=== PATIENT | female | born 1970 | race Caucasian/White ===

== ENCOUNTER 2016-11-15 05:45 | Observation (INO) | payer OTHER ==
[~2016-11-15] VITALS: Ht 149.9 cm; Wt 75.8 kg
[~2016-11-15 05:45] MED LIST: ALBUAER3 INH; DICL1GEL TOPICAL; GABA300C5 PO; LINA290C PO; METH2.5T PO; MULTTAB67 PO; SERT-129 PO; TOPI200T7 PO
[2016-11-15] MEDS ORDERED: SODIUM CHLORIDE 0.9% INJ 100 ML ONE (06:14)
[2016-11-15] MEDS ORDERED: CLINDAMYCIN 600 MG/NS 100 ML IV SCH ×2 (06:15)
[2016-11-15] MEDS ORDERED: GENTAMICIN/SOD CHL 80 MG/100 ML IV SCH (06:15)
[2016-11-15] MEDS ORDERED: METOPROLOL TARTRATE 25 MG TAB PO PRN (06:15)
[2016-11-15] MEDS ORDERED: INSULIN HUMAN REGULAR 1,000 UNITS/10 ML VIAL SQ PRN (06:15)
[2016-11-15] MEDS ORDERED: SODIUM CHLORID 0.9% 500 ML IV SCH (06:15)
[2016-11-15] MEDS ORDERED: LACTATED RINGER'S 1000 ML IV SCH (06:15)
[2016-11-15 06:33] VITALS: BP 96/60; PULSE 52; RESP 16; TEMP 97.5; O2SAT 99
[2016-11-15 07:00] LABS: AUTOMATED NEUTROPHIL # 2.2 TH/MM3 (1.8-7.7); BASOPHIL # 0.1 TH/MM3 (0-0.2); BASOPHIL % 1.4 % (0.0-2.0); EOSINOPHIL # 0.4 TH/MM3 (0-0.4); EOSINOPHIL % 8.5 % (0.0-4.0); HEMATOCRIT 39.4 % (35.0-46.0); HEMO FLAGS DIFF FINAL; LYMPH % 31.3 % (9.0-44.0); LYMPHOCYTE # 1.4 TH/MM3 (1.0-4.8); MEAN CELL VOLUME 83.3 FL (80.0-100.0); MEAN CORPUSCULAR HEMOGLOBIN 27.9 PG (27.0-34.0); MEAN CORPUSCULAR HGB CONC 33.4 % (32.0-36.0); MONO % 7.4 % (0.0-8.0); NEUT % 51.4 % (16.0-70.0); PLATELET COUNT 199 TH/MM3 (150-450); RED BLOOD COUNT 4.72 MIL/MM3 (4.00-5.30); RED CELL DISTRIBUTION WIDTH 14.8 % (11.6-17.2); WHITE BLOOD COUNT 4.4 TH/MM3 (4.0-11.0)
[2016-11-15] MEDS ORDERED: METHYLENE BLUE 10 MG/ML VIAL ONE (07:02)
[2016-11-15] MEDS ORDERED: VASOPRESSIN INJ 20 UNITS/ML VIAL ONE (07:02)
[2016-11-15 07:11] LABS: BACTERIA, URINE FEW /hpf; BLOOD, URINE NEG (NEG); COMMENT (UR) CULTURE INDICATED; CULTURE IF INDICATED CULTURE INDICATED; GLUCOSE,URINE NEG (NEG); HYALINE CAST, URINE 3 /lpf (RARE); KETONE, URINE NEG (NEG); MUCUS URINE FEW /lpf (OCC); NITRITE,URINE NEG (NEG); PH, URINE 5.5 (5.0-8.5); SQUAMOUS EPITHELIAL CELL URINE 18 /hpf (0-5); TRANSITIONAL EPI CELLS, URINE <1 /hpf; URINE COLOR YELLOW (YELLW/STRAW)
[2016-11-15 07:44] LABS: ANION GAP 7 MEQ/L (5-15); AST (GOT) 10 U/L (15-37); BICARBONATE 25.5 MEQ/L (21.0-32.0); BLOOD UREA NITROGEN 13 MG/DL (7-18); CHLORIDE 110 MEQ/L (98-107); GLOMERULAR FILTRATION RATE 72 ML/MIN (>89); POTASSIUM 3.6 MEQ/L (3.5-5.1); SODIUM (NA) 142 MEQ/L (136-145)
[2016-11-15 07:48] LABS: ALKALINE PHOSPHATASE 111 U/L (45-117); ALT (GPT) 19 U/L (10-53); TOTAL BILIRUBIN ADULT 0.3 MG/DL (0.2-1.0)
[2016-11-15] MEDS ORDERED: DEXAMETHASONE SOD PHOS 4 MG/ML VIAL ONE (08:05)
[2016-11-15] MEDS ORDERED: MIDAZOLAM HCL 2 MG/2 ML VIAL ONE (08:05)
[2016-11-15] MEDS ORDERED: FAMOTIDINE 20 MG/2 ML VIAL ONE (08:05)
[2016-11-15] MEDS ORDERED: DO NOT ADM ANY ANTICOAGULANT DRUGS XX PRN (09:52)
[2016-11-15] MEDS ORDERED: fentaNYL CITRATE 250 MCG/5 ML AMP ONE (09:55)
[2016-11-15] MEDS ORDERED: *morphine SULFATE 8 MG/ML PERIprocedure ONLY ONE (10:12)
[2016-11-15] MEDS ORDERED: ARTIFICIAL TEARS OPTH SOLN 15 ML BTL EACH EYE PRN (10:15)
[2016-11-15] MEDS ORDERED: ePHEDrine/NS 25 MG/5 ML SYR ONE (10:25)
[2016-11-15 10:56] LABS: AUTOMATED NEUTROPHIL # 7.1 TH/MM3 (1.8-7.7); BASOPHIL # 0.1 TH/MM3 (0-0.2); BASOPHIL % 0.8 % (0.0-2.0); EOSINOPHIL # 0.2 TH/MM3 (0-0.4); EOSINOPHIL % 1.9 % (0.0-4.0); HEMATOCRIT 38.6 % (35.0-46.0); HEMO FLAGS DIFF FINAL; LYMPH % 16.3 % (9.0-44.0); LYMPHOCYTE # 1.5 TH/MM3 (1.0-4.8); MEAN CELL VOLUME 84.5 FL (80.0-100.0); MEAN CORPUSCULAR HEMOGLOBIN 27.2 PG (27.0-34.0); MEAN CORPUSCULAR HGB CONC 32.2 % (32.0-36.0); MONO % 1.9 % (0.0-8.0); NEUT % 79.1 % (16.0-70.0); PLATELET COUNT 160 TH/MM3 (150-450); RED BLOOD COUNT 4.57 MIL/MM3 (4.00-5.30); RED CELL DISTRIBUTION WIDTH 14.6 % (11.6-17.2); WHITE BLOOD COUNT 8.9 TH/MM3 (4.0-11.0)
[2016-11-15] MEDS: KETOROLAC TROMETHAMINE 30 MG/ML (IVP) VIAL IV PUSH SCH ×2 (10:58→18:43)
[2016-11-15] MEDS ORDERED: MEPERIDINE HCL 25 MG/ML VIAL IVP PRN (11:00)
[2016-11-15] MEDS ORDERED: ONDANSETRON HCL 4 MG/2 ML VIAL IV PUSH PRN (11:00)
[2016-11-15] MEDS ORDERED: MEPERIDINE HCL 50 MG TAB PO PRN (11:00)
[2016-11-15 11:10] LABS: BICARBONATE 25.6 MEQ/L (21.0-32.0); POTASSIUM 3.6 MEQ/L (3.5-5.1)
[2016-11-15] MEDS ORDERED: ACETAMINOPHEN 1000 MG/100 ML VIAL IV ONE ×2 (11:22→11:45)
[2016-11-15] MEDS ORDERED: PROPOFOL 200 MG/20 ML AMP IV ONE (12:00)
[2016-11-15] MEDS ORDERED: NEOSTIGMINE 3 MG/3 ML SYR IV ONE (12:00)
[2016-11-15] MEDS ORDERED: ONDANSETRON HCL 4 MG/2 ML VIAL IV PUSH ONE (12:00)
[2016-11-15] MEDS ORDERED: LACTATED RINGER'S 1000 ML INJ 1,000 ML IV ONE (12:00)
[2016-11-15] MEDS ORDERED: PHENYLEPH/NS 1000 MCG/10 ML SYR IV ONE (12:00)
[2016-11-15] MEDS ORDERED: KETOROLAC TROMETHAMINE 60 MG/2 ML (IM) VIAL IM ONE (12:00)
[2016-11-15] MEDS ORDERED: GABAPENTIN 300 MG CAP PO SCH (13:00)
[2016-11-15] MEDS: GABAPENTIN 300 MG CAP PO SCH ×2 (15:21→21:42)
[2016-11-15] MEDS ORDERED: ALPRAZolam 0.5 MG TAB PO PRN (15:30)
[2016-11-15] MEDS ORDERED: ONDANSETRON HCL 4 MG/2 ML VIAL IM PRN (15:45)
[2016-11-15] MEDS ORDERED: PILL SPLITTER OTHER PRN (15:45)
[2016-11-15 15:50] VITALS: BP 114/62; PULSE 67; RESP 18; TEMP 96.1; O2SAT 97
[2016-11-15] MEDS: LACTATED RINGER'S 1000 ML INJ 1,000 ML IV SCH (15:53)
[2016-11-15] MEDS ORDERED: ALBUTEROL SULFATE 90 MCG/ACT HFA 18 GM INHALER INH PRN (16:00)
[2016-11-15 20:23] VITALS: BP 103/61; PULSE 74; RESP 16; TEMP 97.5; O2SAT 97
[2016-11-15] MEDS ORDERED: TOPIRAMATE 200 MG TAB PO SCH (21:00)
[2016-11-15] MEDS: TOPIRAMATE 100 MG TAB PO SCH (21:42)
[2016-11-15 22:11] VITALS: O2SAT 98
[2016-11-16 00:34] VITALS: BP 110/66; PULSE 64; RESP 18; TEMP 98.8; O2SAT 96
[2016-11-16] MEDS: KETOROLAC TROMETHAMINE 30 MG/ML (IVP) VIAL IV PUSH SCH ×2 (03:00→11:35)
[2016-11-16 04:33] VITALS: BP 106/60; PULSE 86; RESP 18; TEMP 97.8; O2SAT 95
[2016-11-16] MEDS: LACTATED RINGER'S 1000 ML INJ 1,000 ML IV SCH (05:20)
[2016-11-16] MEDS: GABAPENTIN 300 MG CAP PO SCH (06:00)
[2016-11-16 08:00] VITALS: BP 98/59; PULSE 81; RESP 16; TEMP 98.1; O2SAT 94
[2016-11-16] MEDS ORDERED: FOLIC ACID 1 MG TAB PO SCH (09:00)
[2016-11-16] MEDS ORDERED: SERTRALINE HCL 100 MG TAB PO SCH (09:00)
[2016-11-16] MEDS: TOPIRAMATE 100 MG TAB PO SCH (09:06)
[2016-11-16 10:32] VITALS: O2SAT 96
--- NOTE | 2016-11-16 11:21 | HHI.DS ---
Discharge Summary Admission Date Nov 15, 2016 at 09:40 Discharge Date: Nov 16, 2016 Admitting Diagnosis post-menopausal bleeding s/p endometrial ablation seizure disorder cortical blindness CBC/BMP: 11/15/16 1040 11/15/16 1040 Significant Findings Laboratory Tests Test 11/15/16 11/15/16 11/15/16 06:35 07:20 10:40 Eosinophils (%) (Auto) 8.5 % (0.0-4.0) Urine Turbidity HAZY (CLEAR) Urine Leukocyte Esterase LARGE (NEG) Urine RBC 10 /hpf (0-3) Urine WBC 33 /hpf (0-5) Urine Bacteria FEW /hpf (NONE) Urine Mucus FEW /lpf (OCC) Chloride Level 110 MEQ/L 112 MEQ/L (98-107) (98-107) Estimat Glomerular Filtration 72 ML/MIN (>89) 87 ML/MIN (>89) Rate Aspartate Amino Transf 10 U/L (15-37) (AST/SGOT) Neutrophils (%) (Auto) 79.1 % (16.0-70.0) Anion Gap 4 MEQ/L (5-15) Random Glucose 140 MG/DL (74-106) PE at Discharge Sitting comfortably eating a regular diet. Vital signs stable. No seizures. Clear to auscultation and heart regular rate and rhythm. Small vaginal bleeding now scant. Hospital Course Surgery uncomplicated with low blood loss. Normal post-operative progression. Pt Condition on Discharge: Good Discharge Disposition: Disch w/ Home Health Serv Discharge Instructions DIET: Follow Instructions for: As Tolerated, No Restrictions Speech Therapy-Diet Recommenda: Regular Activities you can perform: Shower Only-No Bath, Pelvic Rest Activities to avoid: Lifting/Bending, Weight Bearing, Prolonged Standing, Sexual Activity Additional Information Patient has prescriptions for post-op pain and antibiotic for UTI at home. She has a follow up appointment with me next week already scheduled. Patient requests home health referral for assistance with tasks of daily living at home. Bridgette Gonzalez MD Nov 16, 2016 11:21
--- NOTE | 2016-11-16 13:26 | HHI.FF ---
Face to Face Verification Diagnosis: (1) UTI (urinary tract infection) (2) Post-menopausal bleeding (3) Cortical blindness (4) Seizure disorder (5) Status post vaginal hysterectomy Home Health Nursing Order: Nursing assessment with vital signs Home Health Aide Order: To Assist In: Bathing and personal care, lead pony rider and meal prep I have seen patient Becca Jones on 11/16/16. My clinical findings support the need for the requested home health care services because: Limited ability to care for self I certify that my clinical findings support that this patient is homebound because: Post-op weakness Unsafe to leave home unassisted On pelvic rest so lifting limited to 15 lb. Patient should do only limited lifting, standing or bending for the next 2 weeks. Cannot change bedsheets, sweep, mop or vacuum. Bridgette Gonzalez MD Nov 16, 2016 13:26
--- NOTE | 2016-11-20 14:21 | MP ---
cc: ARTUR MUNROE,BRIDGETTE Rojas MD DATE OF SURGERY: 11/15/2016 PREOPERATIVE DIAGNOSIS Postmenopausal bleeding status post endometrial ablation and urinary tract infection. POSTOPERATIVE DIAGNOSIS Postmenopausal bleeding status post endometrial ablation and urinary tract infection. OPERATION Total vaginal hysterectomy, bilateral salpingo-oophorectomy. SURGEON Bridgette Gonzalez MD ANESTHESIA Dr. Paulson, general endotracheal. COMPLICATIONS None. ESTIMATED BLOOD LOSS 100 ccs. INDICATIONS This multiparous woman has had her tubes tied and an endometrial ablation. The endometrial ablation being several years ago. She developed postmenopausal bleeding and of course had an abnormal ultrasound showing an inhomogeneous myometrium and obliterated Endometrium. Endometrial biopsy in the office was attempted twice without success. FINDINGS At the time of surgery the patient was found to have a relatively small uterus and cervix. The ovaries looked atrophic and normal bilaterally as did the tubes. They were sent as a single specimen. PROCEDURE The patient was taken to the operating room, placed supine on the operating room table. After general endotracheal anesthetic she was prepped and [facility] using Betadine. She had received Cleocin and gentamicin preoperatively for prophylaxis. The cervix was grasped with a single-tooth tenaculum. A weighted retractor was placed in the posterior vault and the cervix was injected circumferentially with dilute vasopressin. After achieving good blanching the incision was made circumferentially and the posterior cul-de-sac was entered sharply. The weighted retractor was traded for a long weighted retractor. The soft tissues were pushed away from the uterosacral ligaments as well as anteriorly to keep the bladder out of the field. The uterosacral ligaments were bilaterally clamped, pedicles cut and suture ligatures placed. This was followed by the uterosacral ligaments bilaterally. The uterovesical space was further developed and the peritoneal cavity entered anteriorly. Bladder was held aloft throughout the remainder of the case. Two bites were necessary on each side before freeing the uterus from the broad ligament. The adnexal pedicle was bilaterally double clamped, free tied and suture ligated. The pedicles were then carefully inspected individually for hemostasis. The free ends of the uterosacral and cardinal ligament ties had been reserved and these were brought out through their posterior and anterior fornices respectively and tied to their ipsilateral partners. The remaining ties were tied across the midline to give further vaginal cuff support. The vaginal cuff was then closed posteriorly to anteriorly in running locked fashion taking care to get full thickness bites and this was after identifying the adnexa bilaterally grasping with [place] clamps and doing a double clamp across the infundibulopelvic ligament on each side and freeing the adnexa individually. These pedicles were also inspected and found to be hemostatic before they were cut free. The Fernandez catheter was reconnected since it had been clamped after infusion of blue stained fluid. The urine appeared clear postoperatively. The patient was awakened and transferred to the recovery room breathing on her own. She tolerated the procedure well. Sponge, needle and instrument counts were correct. MD DYLON Plaza/OSIEL /10:21 AM /2:05 PM
== END 2016-11-16 13:37 | disposition home or self-care (01) ==
LOC: HSDC 05:45 → N05A 09:40
PROVIDERS: ADMIT Obstetrics & Gynecology; ATTEND Obstetrics & Gynecology
DX: D25.9 Leiomyoma of uterus, unspecified (principal); N95.0 Postmenopausal bleeding; N72 Inflammatory disease of cervix uteri; N39.0 Urinary tract infection, site not specified; G40.909 Epilepsy, unspecified, not intractable, without status epilepticus; H54.0 Blindness, both eyes; J45.909 Unspecified asthma, uncomplicated
CPT/HCPCS: 00940; 58262; 80048; 80053; 81001; 85025; 87086; 88307; G0378; J0131; J1100; J1580; J1885; J2250; J2270; J2370; J2405; J2710; J3010; J7120